=== PATIENT | male | born 1975 | race African-American/Black ===

== ENCOUNTER 2020-12-02 02:23 | Emergency (ER) | payer OTHER ==
[~2020-12-02] VITALS: Ht 177.8 cm; Wt 75.0 kg
[2020-12-02] MEDS ORDERED: DOXY100C2 PO (03:16)
--- NOTE | 2020-12-02 03:16 | ED.ADGEN ---
Past Medical History Past Medical History: Unknown Additional Past Medical Histor: unknown Past Surgical History: Other Additional Past Surgical Histo: unknown Smoking Status: Current Some Day Smoker Alcohol Use: None General Adult EDM: Chief Complaint: ABSCESS HPI: HPI: Patient is a 45 year old male coming in for a abscess to his right butt cheek. Has been getting worse for a few days has not noted any drainage. No systemic complaints. Denies any history of abscesses in the past. Review of Systems: Review of Systems: All other systems within normal limits except for as noted in the HPI Allergies: Allergies: Allergies Coded Allergies Type Severity Reaction Last Updated Verified codeine Allergy Unknown 08/06/20 Yes Physical Exam: PE: Constitutional: Well developed, well nourished, no acute distress, non-toxic appearance. [] HENT: Normocephalic, atraumatic, bilateral external ears normal, nose normal. [] Eyes: PERRLA, conjunctiva normal, no discharge. [] Neck: No rigidity, supple, no stridor. [] Cardiovascular: Regular rate and rhythm, brisk cap refill [] Lungs & Thorax: Non labored symmetric respirations, no tachypnea or respiratory distress [] Abdomen: Soft, nondistended. Skin: Warm, dry, no erythema, no rash. Indurated area about nickel size on the right buttock. No areas of fluctuance or drainage. [] Back: Unremarkable Extremities: No deformities, range of motion grossly intact, no lower extremity edema [] Neurologic: Alert and oriented X 3, no focal deficits noted. [] Psychologic: Affect normal, judgement normal, mood normal. [] EKG: EKG: [] Heart Score: Risk Factors: Risk Factors: DM, Current or recent (<one month) smoker, HTN, HLP, family history of CAD, obesity. Risk Scores: Score 0 - 3: 2.5% MACE over next 6 weeks - Discharge Home Score 4 - 6: 20.3% MACE over next 6 weeks - Admit for Clinical Observation Score 7 - 10: 72.7% MACE over next 6 weeks - Early Invasive Strategies Radiology/Procedures: Radiology/Procedures: [] Course & Med Decision Making: Course & Med Decision Making Pertinent Labs and Imaging studies reviewed. (See chart for details) Discussed incision and drainage per patient versus antibiotics to follow-up with primary care. The lesion does not feel like it would be very amenable to incision and drainage as there is indurated tissue without any fluctuance. [] Dragon Disclaimer: Dragon Disclaimer: This electronic medical record was generated, in whole or in part, using a voice recognition dictation system. Departure Departure Impression: Primary Impression: Abscess Disposition: 01 DC HOME SELF CARE/HOMELESS Condition: STABLE Referrals: NO PCP (PCP) Patient Instructions: Abscess Scripts Doxycycline Hyclate (DOXYCYCLINE HYCLATE) 100 Mg Capsule 1 CAP PO BID for antibiotic for 7 Days, #14 CAP Prov: JULIO JASMINE MD 12/02/20 JULIO JASMINE MD Dec 02, 2020 03:16
[2020-12-02 03:28] VITALS: BP 168/83
== END 2020-12-02 03:31 | disposition home or self-care (01) ==
LOC: EDBD 02:23 → ER 02:23
DX: L02.31 Cutaneous abscess of buttock (principal); Z98.890 Other specified postprocedural states; Z87.891 Personal history of nicotine dependence
CPT/HCPCS: 99283

== ENCOUNTER 2021-04-01 19:20 | Emergency (ER) | payer OTHER ==
[~2021-04-01] VITALS: Ht 180.3 cm; Wt 72.7 kg
[~2021-04-01 19:20] MED LIST: DOXY100C2 PO
[2021-04-01 20:12] LABS: BARBITURATES NEG (NEG); BENZODIAZEPINES NEG (NEG); CANNABINOIDS POS (NEG); COCAINE POS (NEG); METHADONE NEG (NEG); OPIATES NEG (NEG); PHENCYCLIDINE POS (NEG)
[2021-04-01 20:14] LABS: AMPHETAMINE/METHAMPHETAMINE NEG (NEG)
[2021-04-01] MEDS: HALOPERIDOL 5 MG TABLET. PO ONE (20:15)
[2021-04-01 21:04] VITALS: BP 148/92
--- NOTE | 2021-04-01 21:06 | ED.ADGEN ---
Past Medical History Past Medical History: Hypertension, Other Additional Past Medical Histor: hemorrhoids Past Surgical History: No Surgical History Additional Past Surgical Histo: unknown Smoking Status: Former Smoker Alcohol Use: None General Adult EDM: Chief Complaint: ALTERED MENTAL STATUS HPI: HPI: Patient is a 45-year-old male with past medical history of polysubstance abuse who presents to the emergency room in police custody after being found with altered mental status. Patient was standing in the street waving a pistol around. Police believe that he is intoxicated. He does not have any trauma. They state they just need him medically cleared. Patient admits to smoking marijuana but is unsure if his marijuana was laced with anything. History is limited from the patient as he is easily distractible and intoxicated. He does not appear to have any complaints other than that he does not want his handcuffs behind his back. Review of Systems: Review of Systems: Complete ROS is negative unless otherwise documented in HPI Current Medications: Current Medications Medications (Trade) Dose Ordered Sig/Live Start Time Stop Time Status Last Admin Dose Admin Haloperidol (Haldol) 5 mg 1X ONCE 04/01/21 20:30 04/01/21 20:31 DC 04/01/21 20:15 5 MG Lorazepam (Ativan) 2 mg 1X ONCE 04/01/21 20:30 04/01/21 20:31 DC 04/01/21 20:15 2 MG Allergies: Allergies: Allergies Coded Allergies Type Severity Reaction Last Updated Verified codeine Allergy Unknown 08/06/20 Yes Physical Exam: PE: General: Awake, alert, anxious, intoxicated HEENT: Atraumatic, EOMI, PERRL, airway patent, moist oral mucosa Neck: Supple, trachea midline Respiratory: CTA bilaterally, normal effort, no wheezing/crackles CV: Tachycardic, no murmur, cap refill <2 GI: Soft, nondistended, nontender, no masses MSK: No obvious deformities Skin: Warm, dry, intact Neuro: A&O x3, speech NL, sensory and motor grossly intact, no focal deficits Psych: Anxious, paranoid, not suicidal or homicidal Current Patient Data: Labs: Laboratory Tests Test 04/01/21 19:55 Urine Opiates Screen Neg (NEG) Urine Methadone Screen Neg (NEG) Urine Barbiturates Neg (NEG) Urine Phencyclidine Screen Pos (NEG) Urine Amphetamine/Methamphetamine Neg (NEG) Urine Benzodiazepines Screen Neg (NEG) Urine Cocaine Screen Pos (NEG) Urine Cannabinoids Screen Pos (NEG) Urine Ethyl Alcohol Neg (NEG) Vital Signs: Vital Signs Date Time Temp Pulse Resp B/P (MAP) Pulse Ox O2 Delivery O2 Flow Rate FiO2 04/01/21 21:04 85 20 148/92 (110) 94 Room Air 04/01/21 19:25 98.2 98.2 EKG: EKG: [] Heart Score: C/O Chest Pain: N/A Risk Factors: Risk Factors: DM, Current or recent (<one month) smoker, HTN, HLP, family history of CAD, obesity. Risk Scores: Score 0 - 3: 2.5% MACE over next 6 weeks - Discharge Home Score 4 - 6: 20.3% MACE over next 6 weeks - Admit for Clinical Observation Score 7 - 10: 72.7% MACE over next 6 weeks - Early Invasive Strategies Radiology/Procedures: Radiology/Procedures: [] Course & Med Decision Making: Course & Med Decision Making Pertinent Labs and Imaging studies reviewed. (See chart for details) Patient is a 45-year-old male who presents to the emergency room with altered mental status likely due to intoxication. Drug screen is positive for PCP, cocaine, marijuana. Patient's presentation is most consistent with PCP intoxication. I did offer him Haldol and Ativan to help him relax. Patient states he will take these orally. He is refusing any IV draws. Patient appears to be calm and is not combative at this time. EKG does not show signs of a STEMI. Chest x-ray does not show any widened mediastinum or pulmonary edema secondary to his substance abuse. At this time patient will be discharged into police custody. Patient's test results and vitals while in the ED were fully reviewed and discussed with the patient. Patient is stable and at this time does not need admission to the hospital. We have discussed strict return precautions and the importance of following up with their Primary Care Physician. Patient stated understanding and was given an opportunity to ask any questions. Patient is in agreement with plan. Aleenaon Disclaimer: Nikky Disclaimer: This electronic medical record was generated, in whole or in part, using a voice recognition dictation system. Departure Departure Impression: Primary Impression: PCP abuse Disposition: HOME / SELF CARE / HOMELESS Condition: STABLE Referrals: NO PCP (PCP) Patient Instructions: Chest Pain (Nonspecific), Drug Abuse, FAQs JOSUE OZUNA MD April 01, 2021 21:06
--- NOTE | 2021-04-01 23:06 | RAD ---
EXAM: AP View of the chest DATE: 04/01/2021 8:52 PM INDICATION: Reason: chest pain / Spl. Instructions: / History: COMPARISON: 08/05/2020 FINDINGS: The heart is not enlarged. Mediastinal and hilar contours are normal. No focal parenchymal airspace opacity. No pleural effusion or pneumothorax. IMPRESSION: 1. No radiographic evidence for acute cardiopulmonary process. Electronically signed by: Samm Saeed MD (04/01/2021 11:03 PM) V[facility]
--- NOTE | 2021-04-02 06:34 | EKG ---
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
== END 2021-04-01 21:09 | disposition home or self-care (01) ==
LOC: ER 19:20
DX: F19.10 Other psychoactive substance abuse, uncomplicated (principal); R41.82 Altered mental status, unspecified; I10 Essential (primary) hypertension; Z87.891 Personal history of nicotine dependence; Z88.5 Allergy status to narcotic agent
CPT/HCPCS: 71045; 80307; 93005; 99285-25